=== PATIENT | female | born 1965 | race Caucasian/White ===

== ENCOUNTER → 2016-03-17 | Outpatient (CLI) | payer OTHER | LOC: RAD 15:49 | PROVIDERS: ATTEND Internal Medicine Medical Oncology | DX: D75.1 Secondary polycythemia (principal); R06.02 Shortness of breath | CPT/HCPCS: 71020 ==

== ENCOUNTER 2017-04-11 15:05 | Emergency (ER) | payer OTHER ==
[2017-04-11 15:16] VITALS: BP 134/85
[2017-04-11] MEDS ORDERED: ACETAMINOPHEN 325 MG TABLET PO ONE (15:16)
--- NOTE | 2017-04-11 16:27 | ER Document Report ---
ED Medical Screen (RME) - General Chief Complaint: Headache Stated Complaint: FEVER,HEADACHE,ABDOMINAL PAIN Time Seen by Provider: 04/11/17 16:20 Mode of Arrival: Ambulatory Information source: Patient TRAVEL OUTSIDE OF THE [place] IN LAST 30 DAYS: No - HPI Onset: Other - 2 DAYS Onset/Duration: Sudden Quality of pain: Achy, Dull - Related Data Allergies/Adverse Reactions: No Known Allergies Allergy (Unverified 06/07/11 12:40) Past Medical History Pulmonary Medical History: Reports: Hx Asthma Renal/ Medical History: Denies: Hx Peritoneal Dialysis Past Surgical History: Reports: Hx Hysterectomy, Hx Orthopedic Surgery - right shoulder, carpal tunnel, right calf - Immunizations Hx Diphtheria, Pertussis, Tetanus Vaccination: Yes Physical Exam - Vital signs Vitals: Temp Pulse Resp BP Pulse Ox 101.5 F H 102 H 14 134/85 H 97 04/11/17 15:15 04/11/17 15:15 04/11/17 15:15 04/11/17 15:15 04/11/17 15:15 Course - Vital Signs Vital signs: Temp Pulse Resp BP Pulse Ox 101.5 F H 102 H 14 134/85 H 97 04/11/17 15:15 04/11/17 15:15 04/11/17 15:15 04/11/17 15:15 04/11/17 15:15 Doctor's Discharge - Discharge Clinical Impression: Influenza Condition: Stable Disposition: HOME, SELF-CARE Instructions: Acetaminophen, Antinausea Medication ([facility]), Influenza ([facility]) Additional Instructions: REST, DRINK PLENTY OF FLUIDS. TAKE TAMIFLU DIRECTED. YOU MAY TAKE ZOFRAN FOR NAUSEA CONTROL IF NEEDED. TAKE TYLENOL OR IBUPROFEN FOR TREATMENT OF FEVER AND BODY ACHES. STOP SMOKING. FOLLOW UP WITH YOUR PRIMARY CARE PROVIDER OR RETURN TO E.R. IF PROBLEMS. Prescriptions: Ondansetron [Zofran Odt 4 mg Tablet] 1 - 2 tab PO Q4HP PRN #10 tab.rapdis PRN Reason: Fluticasone/Salmeterol [Advair 250-50 Diskus 28 dose] 1 inh IH Q12H #1 inhaler Oseltamivir Phosphate [Tamiflu 75 mg Capsule] 75 mg PO BID #10 capsule
== END 2017-04-11 16:32 | disposition home or self-care (01) ==
LOC: ER 15:05
DX: J11.1 Influenza due to unidentified influenza virus with other respiratory manifestations (principal); R51 Headache; R10.9 Unspecified abdominal pain; R50.9 Fever, unspecified
CPT/HCPCS: 99283

== ENCOUNTER 2019-10-22 00:48 | Emergency (ER) | payer OTHER ==
[2019-10-22] MEDS ORDERED: MORPHINE SULFATE 10 MG/ML INJ IV ONE (02:49)
[2019-10-22] MEDS ORDERED: NORMAL SALINE 1000 ML 1,000 ML IV ONE (02:49)
[2019-10-22] MEDS ORDERED: ONDANSETRON HCL INJ/PF 4 MG/2 ML SDV IV ONE (02:49)
--- NOTE | 2019-10-22 02:50 | ER Document Report ---
ED GI Bleed / Rectal Pain - General Chief Complaint: Bloody Stools Stated Complaint: BLOODY STOOL Time Seen by Provider: 10/22/19 02:43 Notes: CHIEF COMPLAINT: Abdominal pain and diarrhea HPI: 54-year-old female presenting to the emergency department complaining of lower abdominal pain with episodes of diarrhea intermittent over the last 2 w eeks. Patient states it became much more constant today around 4 PM and she is now started to have bloody diarrhea. She is concerned about diverticulitis as there is a family history of diverticulitis. Has had nausea no vomiting. No definitive fever. ROS: See HPI - all other systems were reviewed and are otherwise negative Constitutional: no fever Eyes: no drainage, no blurred vision ENT: no runny nose, no sore throat Cardiovascular: no chest pain Resp: no SOB, no cough GI: no vomiting, + diarrhea, + abdominal pain, positive nausea : no dysuria Integumentary: no rash Allergy: no hives Musculoskeletal: no extremity pain or swelling Neurological: no numbness/tingling, no weakness MEDICATIONS: I agree with the patient medications as charted by the RN. ALLERGIES: I agree with the allergies as charted by the RN. PAST MEDICAL HISTORY/PAST SURGICAL HISTORY: Reviewed and agree as charted by RN. SOCIAL HISTORY: Reviewed and agree as charted by RN. FAMILY HISTORY: No significant familial comorbid conditions directly related to patient complaint EXAM: Reviewed vital signs as charted by RN. CONSTITUTIONAL: Alert and oriented and responds appropriately to questions. Well-appearing; well-nourished, moderate distress secondary to pain HEAD: Normocephalic; atraumatic EYES: PERRL; Conjunctivae clear, sclerae non-icteric ENT: normal nose; no rhinorrhea; moist mucous membranes; pharynx without lesions noted, no uvula edema or deviation, no tonsillar hypertrophy, phonation normal NECK: Supple without meningismus; non-tender; no cervical lymphadenopathy, no masses CARD: RRR; no murmurs, no clicks, no rubs, no gallops; symmetric distal pulses RESP: Normal chest excursion without splinting or tachypnea; breath sounds clear and equal bilaterally; no wheezes, no rhonchi, no rales, pulse oximetry 99% on room air not hypoxic ABD/GI: Normal bowel sounds; non-distended; soft, moderate tenderness over the lower abdomen more focal over the suprapubic region on palpation, no rebound, no guarding; no palpable organomegaly or masses. BACK: The back appears normal and is non-tender to palpation, there is no CVA tenderness EXT: Normal ROM in all joints; non-tender to palpation; no cyanosis, no effusions, no edema SKIN: Normal color for age and race; warm; dry; good turgor; no acute lesions noted NEURO: Moves all extremities equally; Motor and sensory function intact PSYCH: The patient's mood and manner are appropriate. Grooming and personal hygiene are appropriate. MDM: 54-year-old female presenting for abdominal pain with diarrhea intermittent episodes over the last 2 weeks more constant this afternoon and this evening. Does have pictures on her phone of what appears to be blood in the toilet that appears bright red. This is mixed with stool. She is concerned about diverticulitis. Will obtain lab work and CT imaging TRAVEL OUTSIDE OF THE [place] IN LAST 30 DAYS: No - Related Data Allergies/Adverse Reactions: No Known Allergies Allergy (Unverified 06/07/11 12:40) Home Medications: lisinopril. simvastatin. claritain. Flonase. diclofenac. Buspirone. ALbuterol inhaler Past Medical History - Social History Smoking Status: Current Every Day Smoker Chew tobacco use (# tins/day): No Frequency of alcohol use: Occasional Drug Abuse: None Family History: Reviewed & Not Pertinent Pulmonary Medical History: Reports: Hx Asthma Renal/ Medical History: Denies: Hx Peritoneal Dialysis Past Surgical History: Reports: Hx Hysterectomy, Hx Orthopedic Surgery - right shoulder, carpal tunnel, right calf - Immunizations Hx Diphtheria, Pertussis, Tetanus Vaccination: Yes Physical Exam - Vital signs Vitals: Temp 97.9 F 10/22/19 01:32 Course - Re-evaluation Re-evalutation: 10/22/19 06:47 Patient is noted to have transverse colitis on CT likely causing her symptoms. Discussed with the patient. I will place her on Cipro Flagyl refer to GI strict return precautions discussed she verbalizes understanding - Vital Signs Vital signs: Temp Pulse Resp BP Pulse Ox 97.9 F 87 18 111/89 H 98 10/22/19 01:40 10/22/19 01:40 10/22/19 01:40 10/22/19 01:40 10/22/19 01:40 - Laboratory Result Diagrams: 10/22/19 04:10 10/22/19 04:10 Laboratory results interpreted by me: 10/22/19 10/22/19 10/22/19 04:10 04:10 04:10 WBC 12.3 H RDW 14.2 H Sodium 136.5 L AST 43 H ALT 63 H Urine Blood SMALL H Discharge - Discharge Clinical Impression: Colitis Condition: Stable Disposition: HOME, SELF-CARE Instructions: Colitis, Nonspecific ([facility]) Additional Instructions: Take the medications as prescribed no driving if taking narcotics for pain. It was noticed that you have an infection or colitis of the transverse colon. It is imperative that you follow-up with gastroenterology for further evaluation and management call for appointment. Return for worsening pain, fever or worsening rectal bleeding Prescriptions: Ciprofloxacin HCl [Cipro 500 mg Tablet] 500 mg PO BID #20 tablet Metronidazole [Flagyl 500 mg Tablet] 500 mg PO BID #14 tablet Hydrocodone/Acetaminophen [[place] 5-325 mg Tablet] 1 tab PO Q4 PRN #15 tablet PRN Reason: Ondansetron [Zofran Odt 4 mg Tablet] 1 - 2 tab PO Q4H PRN #15 tab.rapdis PRN Reason: For Nausea/Vomiting Referrals: NGA FARLEY MD [Primary Care Provider] - Follow up as needed CATHERINE LEWIS MD [ACTIVE STAFF] - Follow up as needed
[2019-10-22 05:12] LABS: APPEARANCE,URINE SLIGHTLY-CLOUDY; BILIRUBIN,URINE NEGATIVE (NEGATIVE); CALCIUM OXALATE CRYSTALS,URINE FEW /HPF; COLOR,URINE YELLOW; GLUCOSE, URINE NEGATIVE (NEGATIVE); KETONES,URINE NEGATIVE (NEGATIVE); LEUKOCYTE ESTERASE,URINE NEGATIVE (NEGATIVE); NITRITE,URINE NEGATIVE (NEGATIVE); PROTEIN,URINE NEGATIVE (NEGATIVE); URINE SPECIFIC GRAVITY 1.025; UROBILINOGEN,URINE NEGATIVE mg/dL (<2.0)
[2019-10-22 05:19] LABS: ABSOLUTE EOSINOPHILS # (AUTO) 0.2 10^3/uL (0.0-0.6); ABSOLUTE LYMPHOCYTES (AUTO) 3.1 10^3/uL (0.5-4.7); ABSOLUTE MONOCYTES (AUTO) 0.7 10^3/uL (0.1-1.4); ABSOLUTE NEUT (AUTO) 8.2 10^3/uL (1.7-8.2); BASOPHILS % (AUTO) 0.4 % (0-2); EOSINOPHILS % (AUTO) 1.5 % (0-6); HEMATOCRIT 41.2 % (36.0-47.0); HEMOGLOBIN 14.1 g/dL (12.0-15.5); LYMPHOCYTES % (AUTO) 25.4 % (13-45); MEAN CORPUSCULAR HEMOGLOBIN 31.7 pg (27.0-33.4); MEAN CORPUSCULAR HGB CONC 34.3 g/dL (32.0-36.0); MEAN CORPUSCULAR VOLUME 92 fl (80-97); MONOCYTES % (AUTO) 5.9 % (3-13); PLATELET COUNT 223 10^3/uL (150-450); RED BLOOD COUNT 4.46 10^6/uL (3.72-5.28); RED CELL DISTRIBUTION WIDTH 14.2 % (11.5-14.0); SEGMENTED NEUTROPHILS % (AUTO) 66.8 % (42-78); TOTAL CELLS COUNTED % (AUTO) 100 %; WHITE BLOOD COUNT 12.3 10^3/uL (4.0-10.5)
[2019-10-22 05:34] LABS: ALBUMIN 4.3 g/dL (3.5-5.0); ALKALINE PHOSPHATASE 73 U/L (38-126); ANION GAP 9 (5-19); ASPARTATE AMINO TRANSFERASE 43 U/L (14-36); BILIRUBIN,TOTAL 0.3 mg/dL (0.2-1.3); BLOOD UREA NITROGEN 19 mg/dL (7-20); CALCIUM 9.3 mg/dL (8.4-10.2); CARBON DIOXIDE 24 mmol/L (22-30); CHLORIDE 104 mmol/L (98-107); GLUCOSE 97 mg/dL (75-110); POTASSIUM 4.6 mmol/L (3.6-5.0); TOTAL PROTEIN 7.1 g/dL (6.3-8.2)
--- NOTE | 2019-10-22 06:40 | RADIOLOGY REPORT (SQ) ---
CLINICAL HISTORY: lower abd pain, r/o diverticulitis COMPARISON: None. TECHNIQUE: CT ABDOMEN PELVIS WITH IV CONTRAST on 10/22/2019 2:48 AM CDT This exam was performed according to our departmental dose-optimization program, which includes automated exposure control, adjustment of the mA and/or kV according to patient size and/or use of iterative reconstruction technique. FINDINGS: Lower lungs are clear. Abdomen: The liver is normal in appearance. There is no biliary dilatation. Gallbladder is normal in appearance. The pancreas and spleen are normal in appearance. The adrenal glands and kidneys are unremarkable. Abdominal aorta is normal in course and caliber without aneurysm. There is no free air. There is no retroperitoneal adenopathy. Pelvis: There is moderate thickening of much of the transverse colon. Urinary bladder is unremarkable. There is no free fluid. Hysterectomy was performed. Appendix is normal. Skeleton: There are no acute osseous findings. No suspicious bony lesions. IMPRESSION: Segmental infectious or inflammatory colitis involving much of the transverse colon.
[2019-10-22] MEDS ORDERED: METRONIDAZOLE 500 MG TABLET PO ONE (06:46)
[2019-10-22] MEDS ORDERED: CIPROFLOXACIN HCL 500 MG TABLET PO ONE (06:46)
[2019-10-22 07:02] VITALS: BP 122/75
== END 2019-10-22 07:10 | disposition home or self-care (01) ==
LOC: ER 00:48
DX: K52.9 Noninfective gastroenteritis and colitis, unspecified (principal); R19.5 Other fecal abnormalities; R10.9 Unspecified abdominal pain; J45.909 Unspecified asthma, uncomplicated
CPT/HCPCS: 99285; 96361; 96374; 96375; 86900; 86901; 36415; 86850; 83690; 85025; 80053; 81001; 74177; J2270; J2405; J7030